=== PATIENT | male | born 1945 | race Hispanic/Latino ===

== ENCOUNTER 2017-10-16 10:02 | Emergency (ER) | payer OTHER ==
--- NOTE | 2017-10-16 11:10 | ED PDOC ---
HPI: Hypertension/Hypotension Time Seen by Provider: 10/16/17 10:34 Chief Complaint (Nursing): High Blood Pressure History Per: Patient Additional Complaint(s): Pt. states for the past week he's been feeling stressed out at work. States that his job has been asking a lot out of him. Reports that this weekend he still felt stressed out and had a feeling as if his head was going to "explode" out of stress but had no headache. This morning he was delegated more work to do which caused him to feel even more anxious prompting him to go to his work's clinic who advised him to come to ED as his heart rate was elevated. Further states that his PMD, Dr. Mariscal, no longer accepts his insurance therefore he has not had his HTN, cholesterol, and DM meds in 6 months. Pt. is uncertain of their names. Denies chest pain, palpitations, S[place], SOB, N/V, headache, numbness , tingling, other injury, fever, abdominal pain, SI/HI, hallucinations. Past Medical History Reviewed: Historical Data, Nursing Documentation, Vital Signs Vital Signs: Last Vital Signs Temp 98 F 10/16/17 10:19 Pulse 114 H 10/16/17 10:19 Resp 20 10/16/17 10:19 BP 230/124 H 10/16/17 10:19 Pulse Ox 99 10/16/17 10:19 - Medical History PMH: Diabetes, HTN, Hypercholesterolemia - Surgical History Surgical History: No Surg Hx - Family History Family History: States: No Known Family Hx - Home Medications Home Medications: Ambulatory Orders Medication Instructions Recorded Enalapril Maleate [Vasotec] 10 mg PO DAILY #14 tab 10/16/17 Metoprolol Tartrate 25 mg PO BID #28 tablet 10/16/17 metFORMIN [glucOPHAGE] 500 mg PO BID #28 tab 10/16/17 - Allergies Allergies/Adverse Reactions: Allergies Allergy/AdvReac Type Severity Reaction Status Date / Time No Known Allergies Allergy Verified 10/16/17 10:18 Review of Systems ROS Statement: Except As Marked, All Systems Reviewed And Found Negative Psych: Positive for: Anxiety Physical Exam - Reviewed Nursing Documentation Reviewed: Yes Vital Signs Reviewed: Yes - Physical Exam Appears: Positive for: Well, Non-toxic, No Acute Distress Head Exam: Positive for: ATRAUMATIC, NORMOCEPHALIC. 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 Negative for: Rash Eye Exam: Positive for: EOMI, Normal appearance, PERRL ENT: Positive for: Normal ENT Inspection Neck: Positive for: Normal, Painless ROM Cardiovascular/Chest: Positive for: Tachycardia. Negative for: JVD, Murmur Respiratory: Positive for: CNT, Normal Breath Sounds Gastrointestinal/Abdominal: Positive for: Normal Exam, Soft. Negative for: Tenderness, Mass Back: Positive for: Normal Inspection Extremity: Positive for: Normal ROM Neurologic/Psych: Positive for: Alert, Oriented. Negative for: Aphasia, Facial Droop - Laboratory Results Result Diagrams: 10/16/17 11:50 10/16/17 11:50 - ECG ECG: Positive for: Interpreted By Me ECG Rhythm: Positive for: Sinus Tachycardia. Negative for: ST/T Changes Rate: 110 O2 Sat by Pulse Oximetry: 99 - Radiology X-Ray: Interpreted by Me (CXR) X-Ray Interpretation: No Acute Disease - Progress ED Course And Treament: Labs, CXR, CT head w/o contrast, EKG ordered. 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 Case d/w Dr. Corbett who agrees with plan and recommends labetalol 10mg IVP. Labetalol 10mg IVP. 1333 On re-evaluation, pt. reports feeling much better. Offers no complaints at this time. Denies chest pain, SOB, palpitations, headache, visual changes, abdominal pain. Further reports that he use to a psychologist as he was a 04/10 survivor but has never been placed on psych meds. Crisis eval ordered. BP: 178/112; HR: 89. Pt. has likely had elevated BP since running out of his meds. Drastically decreasing BP can cause rebound hypertension and further increase his risk for stroke. Pt. will be prescribed Rx for metoprolol, enalapril, metformin. Pt. states he now remembers he use to take metoprolol. Case d/w Dr. Corbett who agrees with care and disposition. 1439 Pt. evaluated by Ching, barn worker, who spoke with Dr. Villanueva and cleared pt. for discharge. Pt. informed of plan and agrees. States he will attempt to find a new PMD in [place]. Still without any complaints. Denies chest pain, SOB, palpitations, headache, visual changes, abdominal pain. Disposition - Clinical Impression Clinical Impression: Uncontrolled hypertension, Anxiety - Patient ED Disposition Is Patient to be Admitted: No - Disposition Referrals: Federico Jean [Outside] Disposition: Routine/Home Disposition Time: 14:44 Condition: IMPROVED Prescriptions: Enalapril Maleate [Vasotec] 10 mg PO DAILY #14 tab metFORMIN [glucOPHAGE] 500 mg PO BID #28 tab Metoprolol Tartrate 25 mg PO BID #28 tablet Instructions: Anxiety, Adult (DC), High Blood Pressure (DC) Forms: [employer] (Yoruba), [facility] ED School/Work Excuse Print Language: WOLOF
[2017-10-16] MEDS ORDERED: Labetalol 5 mg/ml Inj 20ML IVP STA (11:11)
[2017-10-16] MEDS ORDERED: Labetalol 5mg/ml (4ml) ONE (11:23)
--- NOTE | 2017-10-16 11:39 | RAD ---
HISTORY: clearance COMPARISON: No prior. FINDINGS: LUNGS: No active pulmonary disease. Slight elevation left hemidiaphragm could be due to eventration. PLEURA: No significant pleural effusion identified, no pneumothorax apparent. CARDIOVASCULAR: Normal. OSSEOUS STRUCTURES: No significant abnormalities. VISUALIZED UPPER ABDOMEN: Normal. OTHER FINDINGS: None. IMPRESSION: No active disease.
--- NOTE | 2017-10-16 11:56 | CT ---
PROCEDURE: CT HEAD WITHOUT CONTRAST. HISTORY: Elevated BP COMPARISON: None available. TECHNIQUE: Axial computed tomography images were obtained through the head/brain without intravenous contrast. Radiation dose: Total exam DLP = 943.7 mGy-cm. This CT exam was performed using one or more of the following dose reduction techniques: Automated exposure control, adjustment of the mA and/or kV according to patient size, and/or use of iterative reconstruction technique. FINDINGS: HEMORRHAGE: No acute parenchymal, subarachnoid or extra-axial hemorrhage. BRAIN: Mild diffuse/confluent chronic periventricular white matter ischemic changes. Additionally, there are several scattered bilateral basal nuclei chronic lacunar-type infarcts. Mild generalized volume VENTRICLES: No obstructive hydrocephalus. CALVARIUM: There are no acute calvarial fractures. Note is made of a localized small left frontal scalp lipoma PARANASAL SINUSES: Unremarkable as visualized. No significant inflammatory changes. MASTOID AIR CELLS: Unremarkable as visualized. No inflammatory changes. OTHER FINDINGS: None. IMPRESSION: No acute intracranial hemorrhage. Mild chronic white matter ischemic changes with multiple bilateral basal nuclei chronic lacunar-type infarcts.
[2017-10-16 11:59] LABS: BASO % 0.6 % (0.0-2.0); EOS % 0.2 % (0.0-4.0); HEMOGLOBIN 16.3 g/dL (12.0-18.0); LYMPH % 12.4 % (20.0-40.0); MEAN CELL VOLUME 90.3 fl (80.0-94.0); MEAN CORPUSCULAR HGB CONC 34.3 g/dL (33.0-37.0); MEAN PLATELET VOLUME 10.1 fl (7.2-11.7); MONO # 0.7 K/uL (0.0-0.8); MONO % 8.5 % (0.0-10.0); NEUT # 6.3 K/uL (1.8-7.0); NEUT % 78.3 % (50.0-75.0); NRBC % 0.2 % (0.0-0.0); RBC 5.26 Mil/uL (4.40-5.90); RED CELL DISTRIBUTION WIDTH 13.7 % (11.5-14.5)
[2017-10-16 12:14] LABS: ALB/GLOB RATIO 1.3 (1.0-2.1); ALBUMIN 4.4 g/dL (3.5-5.0); ALT/SGPT 42 U/L (21-72); AST/SGOT 27 U/L (17-59); BLOOD UREA NITROGEN 18 mg/dl (9-20); CALCIUM 9.5 mg/dL (8.4-10.2); GFR AFRICAN-AMERICAN > 60; GFR NON-AFRICAN AMERICAN > 60
[2017-10-16 13:21] VITALS: TEMP 98.9
[2017-10-16 16:03] VITALS: BP 176/90; PULSE 88; RESP 18; O2SAT 96
--- NOTE | 2017-10-16 19:48 | CARD ---
APPROVED REPORT EKG Measurement Heart [id number] <Conclusion> Sinus tachycardia Possible Left atrial enlargement RSR' or QR pattern in V1 suggests right ventricular conduction delay Septal infarct, age undetermined Abnormal ECG
== END 2017-10-16 15:20 | disposition home or self-care (01) ==
LOC: H.ER 10:02
DX: I16.0 Hypertensive urgency (principal); F41.9 Anxiety disorder, unspecified; E11.9 Type 2 diabetes mellitus without complications; E78.00 Pure hypercholesterolemia, unspecified; Z79.84 Long term (current) use of oral hypoglycemic drugs